=== PATIENT | female | born 2000 | race Caucasian/White ===

== ENCOUNTER 2018-06-18 18:25 | Emergency (ER) | payer MEDICAID ==
[~2018-06-18] VITALS: Ht 160 cm; Wt 68.0 kg
[2018-06-18 18:55] VITALS: BP 113/62
== END 2018-06-18 20:31 | disposition home or self-care (01) ==
LOC: ED 20:00
DX: J02.8 Acute pharyngitis due to other specified organisms (principal); B97.89 Other viral agents as the cause of diseases classified elsewhere
CPT/HCPCS: 87081; 87880; 99283

== ENCOUNTER 2021-04-09 16:19 | Emergency (ER) | payer BC, MEDICAID ==
[~2021-04-09] VITALS: Ht 162.6 cm; Wt 63.5 kg
[2021-04-09 16:41] VITALS: BP 106/58
[2021-04-09] MEDS ORDERED: DEXAMETHASONE 4 MG TABLET PO ONE (17:00)
[2021-04-09] MEDS ORDERED: ACETAMINOPHEN 325 MG TABLET PO ONE (17:00)
== END 2021-04-09 20:23 | disposition home or self-care (01) ==
LOC: ED 16:29
DX: U07.1 COVID-19 (principal); J06.9 Acute upper respiratory infection, unspecified; B34.9 Viral infection, unspecified
CPT/HCPCS: 71045; 99284; U0003; U0005